=== PATIENT | male | born 1950 | race Caucasian/White ===

== ENCOUNTER 2018-05-04 06:53 | Day surgery (SDC) | payer OTHER, SELFPAY ==
[2018-05-04] VITALS (12 sets, daily range): BP systolic 93–134; BP diastolic 55–85; PULSE 58–68; RESP 12–17; TEMP 36–36.7; O2SAT 94–99; BMI 35.0
--- NOTE | 2018-05-04 | PATH_ITS ---
[facility] Accession Number: [id number] . 01 Material submitted: . PART A: BIOPSY GASTRIC POLYPS PART B: GE JUNCTION BIOPSIES . 02 Diagnosis: A. Gastric Polyps, Biopsies: Fundic gland polyps. No evidence of Helicobacter organisms on H/E stain. Negative for intestinal metaplasia, dysplasia or malignancy. . B. Gastroesophageal Junction, Biopsies: Squamocolumnar junctional mucosa with mild chronic inflammation. Negative for specialized intestinal metaplasia, dysplasia or malignancy. MRV/05/07/2018 . 02 Electronically signed: . Mike Jesus MD, PhD, Pathologist NPI- [id number] . 01 Gross description: . Part A: BIOPSY GASTRIC POLYPS: Received in formalin are multiple fragment(s) of parker, soft tissue measuring 0.8 x 0.3 x 0.2 cm in aggregate submitted entirely in 1 cassette(s) Part B: GE JUNCTION BIOPSIES: Received in formalin are multiple fragment(s) of parker, soft tissue measuring 0.6 x 0.3 x 0.2 cm in aggregate submitted entirely in 1 cassette(s) /CKI /CKI . 02 Pathologist provided ICD-10: K31.7, K21.9 . 02 CPT . 164780, 610169 Performed at: [address] [facility] [address], [place], [place] [id number] MD Navjot White MD Phone: [phone] Performed at: 02 [facility] [address] [place], [place] [id number] MD Rhea Stearns MD Phone: [phone]
[2018-05-04] MEDS: SODIUM CHLORIDE 0.9% 1,000 ML 200 ML IV (07:19)
--- NOTE | 2018-05-04 07:49 | PM.HP.1 ---
History of Present Illness Date Patient Seen: 05/04/18 Time Patient Seen: 07:40 Chief complaint: [id number] EGD/COLONOSCOPY Narrative: The patient is a gentleman with longstanding reflux is been having worsening symptoms at the level of his throat. He has noticed he is getting more of a tickle in cough and is pretty certain it is from a reflux it is worsening. He is due for colonoscopy and is here for both an EGD and colonoscopy. No history of polyps or colon cancer in the family Patient History Medical History Atrial fibrillation (Chronic) Chronic anticoagulation (Chronic) Gout (Chronic) GERD (gastroesophageal reflux disease) (Chronic) Sleep apnea (Chronic) History of atrial fibrillation (Resolved) Surgical History History of tonsillectomy and adenoidectomy (Resolved) Family History Father Hypertension Brain cancer Astrocytoma Social History marital status: household members: spouse occupational status: employed Smoking Status: Never smoker alcohol intake: current substance use type: does not use Family & Social History Social History: household members spouse Tobacco & Substance use: Smoking Status Never smoker alcohol intake current Meds Home Medications Medication Instructions Recorded Confirmed Type metoprolol tartrate 25 mg tablet 25 mg PO BID 01/16/18 05/04/18 History omeprazole 20 mg capsule,delayed 20 mg PO DAILY 01/16/18 05/04/18 History release warfarin 5 mg Q OTHER DAY 05/04/18 05/04/18 History warfarin 7.5 mg Q OTHER DAY 05/04/18 05/04/18 History Allergies Allergy/AdvReac Type Severity Reaction Status Date / Time No Known Drug Allergies Allergy Verified 05/04/18 07:12 Review of Systems Review of Systems No cardiac symptoms breathing issues black or bloody bowel movements seizures blackouts Exam Vital Signs (past 8 hours): - 05/04/18 07:20 Temperature 97.6 F Pulse Rate 68 Respiratory Rate 16 Blood Pressure 134/85 Pulse Oximetry 98 Oxygen Delivery Method Room Air Narrative Exam Narrative: Operative no apparent distress. Eyes nonicteric. Lungs are clear to auscultation without rales or rhonchi. Heart regular rate and rhythm no murmur or gallop appreciated. Abdomen is soft nontender without mass Assessment & Plan Assessment & Plan narrative: Patient with longstanding reflux and due for colonoscopy. I have discussed the procedure and the rationale with the patient including risks of bleeding, perforation which would necessitate a major operation, failure to find remove all lesions and the potential to tattoo. They appeared to understand and wished to proceed.
--- NOTE | 2018-05-04 07:55 | PM.PREOP ---
Pre-operative Note Interval Note History & Physical reviewed/Exam performed by Physician: Yes Changes to H&P: No ASA Class (for procedural sedation): III
[2018-05-04] MEDS: TETRACAINE/BENZOCAINE/BUTAMBEN (CETACAINE) BOTTLE 1 SPRAY TOP (08:02)
[2018-05-04] MEDS: LIDOCAINE 4% SOLN 50 ML 20 ML TOP (08:02)
[2018-05-04] MEDS: fentaNYL 250 MCG/5 ML INJ IV (08:28)
[2018-05-04] MEDS: MIDAZOLAM 5 MG/5 ML VIAL IV (08:28)
--- NOTE | 2018-05-04 09:15 | P.OP.ENDO_ITS ---
Operative Date/Time/Diagnoses Date of procedure: 05/04/18 Time of procedure: 09:06 Pre-op diagnosis: Chronic gastroesophageal reflux disease. Screening for colon cancer. Post-op diagnosis: same (Gastric polyp suggestive of fundic polyps. Left-sided diverticulosis of the colon.) Procedure & Clinicians Study performed: EGD with cold biopsy. Colonoscopy. Same procedure as scheduled: Yes Indications: Chronic reflux. Screening. Surgeon: Sunil Lambert Procedure Notes SCOAP/Timeout: Performed Procedure in detail: The patient had topical anesthetic applied to oropharynx. She was placed in left lateral decubitus position and underwent IV sedation directed by the surgeon consisting of fentanyl and Versed. A bite block was inserted and the scope was advanced through it into the esophagus. The visible portions of the larynx were noted to be normal as were the vocal cords. The esophagus was unremarkable. GE junction was noted at 40 cm from the incisors. There was a sharp demarcation between gastric and esophageal mucosa. None of the typical findings of De Santiago's esophagus were present. The stomach insufflated well. There were no lesions seen in the body, antrum or at the incisura except for some gastric polyps that appeared to be benign gastric fundic polyps. The pyloric channel was patent. The duodenum was unremarkable to the 3rd part. The scope was brought back into the stomach and retroflexed. The proximal stomach was normal except for small hiatal hernia. Biopsies were taken of multiple gastric polyps. The scope was straightened and brought out through the esophagus again. Random biopsies were taken at the GE junction though visibly I did not suspect De Santiago's esophagus. No lesions were seen in the esophagus on withdrawal. The scope was removed and the patient tolerated the procedure well. The patient was placed in the left lateral decubitus position and underwent IV sedation directed by the surgeon consisting of fentanyl and Versed. Digital exam was unremarkable. Of note, due to the location of his prostate and the length of my finger I could only feel the most distal portion of his prostate. I really could not tax compliance manager it size or whether there was a mass. The scope was inserted and advanced through the rectum into the sigmoid, descending, transverse, and ascending colon. I did extensive sigmoid and descending diverticulosis. There was no narrowing however no inflammation. We had to reposition the patient multiple times and apply pressure and assist insert a stiffener in order to reach the cecum. The cecum was reached identified by the ileocecal valve and the appendiceal opening. The scope was gradually brought out. No Polyps were found. The scope ultimately was retroflexed in the rectum. The appearance was normal. The scope was removed and the patient tolerated the procedure well. Prep was very good. Scope withdrawal time: 8.75 min Sedation minutes: 49 Findings: diverticulosis (Left colon) and hiatal hernia (Small) Specimen(s): other (Gastric polyps. Gastroesophageal junction.) Complications: none Recommendations: Colonscopy in 10 years Follow up: as needed Disposition: PACU
== END 2018-05-04 10:24 | disposition home or self-care (01) ==
PROVIDERS: PCP Family Medicine; Visit Provider Specialist
PROC: 0DJ08ZZ Inspection of Upper Intestinal Tract, Via Natural or Artificial Opening Endoscopic (ICD-10-PCS; CPT 43235; principal; 2018-05-04 07:45)
PROC: 0DJD8ZZ Inspection of Lower Intestinal Tract, Via Natural or Artificial Opening Endoscopic (ICD-10-PCS; CPT 45378; 2018-05-04 07:45)
DX: Z12.11 Encounter for screening for malignant neoplasm of colon (principal); K57.30 Diverticulosis of large intestine without perforation or abscess without bleeding; K31.7 Polyp of stomach and duodenum; K21.9 Gastro-esophageal reflux disease without esophagitis; K44.9 Diaphragmatic hernia without obstruction or gangrene; I48.91 Unspecified atrial fibrillation; Z79.01 Long term (current) use of anticoagulants; G47.30 Sleep apnea, unspecified
CPT/HCPCS: 43239; 45378; 99152; 99153; J2250; J3010

== ENCOUNTER → 2018-06-27 15:59 | Outpatient (REF) | payer OTHER, SELFPAY ==
[2018-06-27 16:12] LABS: INR 1.8 (0.9-1.3); Prothrombin Time 21.3 SECONDS (10.1-12.7)
== END ==
LOC: LAB 15:59
PROVIDERS: PCP Family Medicine; Visit Provider Family Medicine
DX: Z79.01 Long term (current) use of anticoagulants (principal)
CPT/HCPCS: 85610

== ENCOUNTER → 2019-02-01 11:24 | Outpatient (ROUT) | payer OTHER, SELFPAY ==
[2019-02-01 11:33] LABS: INR 3.3 (0.9-1.3); Prothrombin Time 39.4 SECONDS (10.1-12.7)
== END ==
PROVIDERS: PCP Family Medicine; Visit Provider Family Medicine
DX: Z79.01 Long term (current) use of anticoagulants (principal)
CPT/HCPCS: 85610

== ENCOUNTER → 2019-02-06 15:39 | Outpatient (ROUT) | payer OTHER, SELFPAY ==
[2019-02-06 15:53] LABS: INR 1.9 (0.9-1.3); Prothrombin Time 22.3 SECONDS (10.1-12.7)
== END ==
PROVIDERS: PCP Family Medicine; Visit Provider Family Medicine
DX: I48.91 Unspecified atrial fibrillation (principal)
CPT/HCPCS: 85610

== ENCOUNTER → 2019-02-11 13:34 | Outpatient (CLI) | payer OTHER, SELFPAY ==
--- NOTE | 2019-02-11 | DI.ECHO.S_ITS ---
[facility] +---------+ : : [address] : : : : [address] : : : : Phone: [phone]+ Echocardiogram Report + + :Name: JORDAN FREEMAN Study Date: 02/11/2019 Height: 74 in : :[facility] Location: [facility] Weight: 275 lb : : Gender: Male BSA: 2.5 m2 : :: 1950 Age: 68 yrs BP: 118/68 mmHg: :Reason For Study: Atrial Fibrillation : :Ordering Physician: Olive : :Shahzad Prado Performed By: Renae Parson : :Referring: OLIVE PRADO : + + Interpretation Summary The patient was in atrial fibrillation with heart rates between 53-73 bpm during the exam. In comparison to previous study atrial fibrillation is new. The left ventricle is normal in size. The ejection fraction is estimated to be 50-55%. Previous LV ejection fraction 55-60%. The right ventricle is grossly normal size. The right ventricular systolic function is normal. No significant valvular pathology seen. Procedure: A two-dimensional transthoracic echocardiogram with color flow and Doppler was performed. The study quality was technically adequate. Comparison is made with the echocardiogram of 01/05/2017. The patient was in atrial fibrillation with heart rates between 53-73 bpm during the exam. Left Ventricle: The left ventricle is normal in size. Left ventricular wall thickness is mildly increased. There is no thrombus. The ejection fraction is estimated to be 50-55%. There are no focal wall motion abnormalities. Diastolic function could not be accurately assessed due to atrial fibrillation. Right Ventricle: The right ventricle is grossly normal size. The right ventricular systolic function is normal. Atria: Both atria are normal in size. Both atria have remained unchanged in size since the prior echo exam. Mitral Valve: The mitral valve is normal in structure and function. There is trace mitral regurgitation. Aortic Valve: The aortic valve is trileaflet. The aortic valve opens well. There is no aortic valve stenosis. No aortic regurgitation is present. Tricuspid Valve: The tricuspid valve is normal in structure and function. There is a trace or physiologic amount of tricuspid regurgitation. Pulmonary artery pressures cannot be estimated because of the lack of a measurable TR jet velocity. Pulmonic Valve: The pulmonic valve is not well seen, but is grossly normal. There is a trace or physiologic amount of pulmonic regurgitation. Great Vessels: The ascending aorta is normal in size. The inferior vena cava was not visualized. Pericardium/ Pleura There is no pericardial effusion. There is an anterior echo-free space consistent with a fat pad. There is no pleural effusion. MMode/2D Measurements & Calculations LVIDd: 5.6 cm LVOT diam: 2.3 cm LVIDs: 3.4 cm asc Aorta Diam: 2.9 cm FS: 40.4 % Ao Arch Diam (Prox Trans): 3.1 cm IVSd: 1.2 cm LVPWd: 1.2 cm LV barraza. diameter/BSA (cm/m^2): 2.3 LV sys. diameter/BSA (cm/m^2): 1.3 LA A2 area: 19.2 cm2 RA long axis: 5.0 cm LA A4 area: 20.3 cm2 RA area: 18.3 cm2 LA length (vol): 5.5 cm RA vol: 57.1 ml LA vol: 60.2 ml RA : 22.9 ml/m2 LA vol index: 24.2 ml/m2 TAPSE: 1.7 cm Doppler Measurements & Calculations Ao V2 max: 106.5 cm/sec LVOT Max Judd: 80.6 cm/sec Ao V2 mean: 72.1 cm/sec LV V1 max P.6 mmHg Ao max P.6 mmHg LV V1 VTI: 14.9 cm Ao mean P.3 mmHg JANUARY(I,D): 3.2 cm2 Ao V2 VTI: 20.0 cm JANUARY(V,D): 3.3 cm2 sev ratio: 0.75 JANUARY indexed to BSA (cm^2/m^2): 1.3 SV(LVOT): 64.0 ml Reading Physician:08:53 AM
== END ==
PROVIDERS: PCP Family Medicine; Visit Provider Internal Medicine Cardiovascular Disease
DX: I48.19 Other persistent atrial fibrillation (principal)
CPT/HCPCS: 93306

== ENCOUNTER → 2019-02-21 08:23 | Outpatient (CLI) | payer OTHER, SELFPAY ==
--- NOTE | 2019-02-21 | DI.NM.S_ITS ---
PROCEDURE: NM DOMINIC PERF SPECT REST & STR Rest and exercise myocardial perfusion SPECT with gated imaging and ejection fraction RADIOPHARMACEUTICAL: 26.3 mCi Tc-99m sestamibi IV at rest and 25.4 mCi Tc-99m sestamibi IV at peak exercise. A two day-protocol was performed. INDICATIONS: Other persistent atrial fibrillation TECHNIQUE: Radiopharmaceutical was injected at peak stress test, and also at rest. SPECT images were obtained. SPECT myocardial perfusion images were displayed in short axis, horizontal long axis, and vertical long axis views. Gated images were reviewed using zweitgeist software. COMPARISON: None. CARDIAC STRESS: A standard Ezequiel treadmill exercise tolerance test was performed by the patient under the supervision of an attending staff. The patient exercised for 6 minutes and 3 seconds; functional aerobic impairment (LINDA) is +20%. Hemodynamic data: There is normal blood pressure and heart rate response to exercise stress. Patient achieved 129% of maximum predicted heart rate at peak exercise. Symptoms: Patient denied chest pain during exercise. EKG: Atrial fibrillation with ventricular rate in the high 90s-100s range at rest. No diagnostic EKG changes of ischemia with exercise; rare ventricular ectopy. FINDINGS: Raw data: There is good myocardial labeling by radiotracer. No significant motion artifacts. Left ventricle function: Gated images demonstrate normal left ventricle wall thickening. No segmental wall motion abnormality. No transient ischemic dilation; TID is 0.77 (normal less than 1.3). The left ventricle resting end-diastolic volume is 131 mL. Left ventricle stress ejection fraction is 56%; normal values are above 45%. Myocardial perfusion: There is normal distribution of activity in the left and right ventricular myocardium. No fixed or reversible perfusion defects. IMPRESSION: Low risk, normal treadmill nuclear stress test available for comparison. 1) No perfusion evidence of ischemia or infarction. 2) Normal left ventricular size, wall motion, and systolic function (EF post stress 56%). 3) No ECG evidence of ischemia. 4) No angina during the study. 5) Mildly reduced exercise tolerance (7.0 METs, LINDA +20%). Target heart rate achieved. Appropriate BP response to exercise. 6) Atrial fibrillation with ventricular rate in the high 90s-100s range at rest. Consider further optimization of rate control. 7) No prior nuclear stress test available for comparison. Dictated by: Loan Razo MD on 02/22/2019 at 16:41 Approved by: Loan Razo MD on 02/22/2019 at 16:44
== END ==
PROVIDERS: PCP Family Medicine; Visit Provider Internal Medicine Cardiovascular Disease
DX: I48.19 Other persistent atrial fibrillation (principal)
CPT/HCPCS: 78452; 93016; 93017; 93018; A9502

== ENCOUNTER → 2019-03-06 13:11 | Outpatient (ROUT) | payer OTHER, SELFPAY ==
[2019-03-06 13:23] LABS: INR 2.6 (0.9-1.3); Prothrombin Time 30.4 SECONDS (10.1-12.7)
== END ==
PROVIDERS: PCP Family Medicine; Visit Provider Family Medicine
DX: Z79.01 Long term (current) use of anticoagulants (principal)
CPT/HCPCS: 85610

== ENCOUNTER → 2019-03-28 13:39 | Outpatient (ROUT) | payer OTHER, SELFPAY ==
[2019-03-28 13:47] LABS: INR 2.1 (0.9-1.3); Prothrombin Time 24.8 SECONDS (10.1-12.7)
== END ==
PROVIDERS: PCP Family Medicine; Visit Provider Family Medicine
DX: Z79.01 Long term (current) use of anticoagulants (principal)
CPT/HCPCS: 85610

== ENCOUNTER → 2019-05-08 12:59 | Outpatient (ROUT) | payer OTHER, SELFPAY ==
[2019-05-08 13:20] LABS: INR 2.7 (0.9-1.3); Prothrombin Time 31.3 SECONDS (10.1-12.7)
== END ==
PROVIDERS: PCP Family Medicine; Visit Provider Family Medicine
DX: Z79.01 Long term (current) use of anticoagulants (principal)
CPT/HCPCS: 85610

== ENCOUNTER → 2019-07-05 09:49 | Outpatient (ROUT) | payer OTHER, SELFPAY ==
[2019-07-05 10:01] LABS: INR 1.8 (0.9-1.3); Prothrombin Time 20.8 SECONDS (10.1-12.7)
== END ==
PROVIDERS: PCP Family Medicine; Visit Provider Family Medicine
DX: Z79.01 Long term (current) use of anticoagulants (principal)
CPT/HCPCS: 85610

== ENCOUNTER → 2019-10-09 10:23 | Outpatient (ROUT) | payer OTHER, SELFPAY ==
[2019-10-09 10:31] LABS: INR 1.4 (0.9-1.3); Prothrombin Time 16.5 SECONDS (10.1-12.7)
== END ==
PROVIDERS: PCP Family Medicine; Visit Provider Family Medicine
DX: Z79.01 Long term (current) use of anticoagulants (principal)
CPT/HCPCS: 85610

== ENCOUNTER → 2020-01-14 10:42 | Outpatient (ROUT) | payer MEDICARE, SELFPAY ==
[2020-01-14 11:06] LABS: INR 2.3 (0.9-1.3); Prothrombin Time 26.2 SECONDS (10.1-12.7)
== END ==
PROVIDERS: PCP Family Medicine; Visit Provider Family Medicine
DX: I48.91 Unspecified atrial fibrillation (principal)
CPT/HCPCS: 85610

== ENCOUNTER → 2020-02-12 12:07 | Outpatient (ROUT) | payer MEDICARE, SELFPAY ==
[2020-02-12 12:19] LABS: INR 2.1 (0.9-1.3); Prothrombin Time 24.4 SECONDS (10.1-12.7)
== END ==
PROVIDERS: PCP Family Medicine; Visit Provider Family Medicine
DX: Z79.01 Long term (current) use of anticoagulants (principal)
CPT/HCPCS: 85610

== ENCOUNTER → 2020-04-01 12:29 | Outpatient (ROUT) | payer MEDICARE, SELFPAY ==
[2020-04-01 12:41] LABS: Prothrombin Time 33.8 SECONDS (10.1-12.7)
== END ==
PROVIDERS: PCP Family Medicine; Visit Provider Family Medicine
DX: I48.91 Unspecified atrial fibrillation (principal)
CPT/HCPCS: 85610

== ENCOUNTER → 2020-04-09 12:24 | Outpatient (ROUT) | payer MEDICARE, SELFPAY ==
[2020-04-09 12:41] LABS: INR 2.7 (0.9-1.3); Prothrombin Time 30.7 SECONDS (10.1-12.7)
== END ==
PROVIDERS: PCP Family Medicine; Visit Provider Family Medicine
DX: Z79.01 Long term (current) use of anticoagulants (principal)
CPT/HCPCS: 85610

== ENCOUNTER → 2020-05-14 14:51 | Outpatient (ROUT) | payer MEDICARE, OTHER, SELFPAY ==
[2020-05-14 15:33] LABS: Prothrombin Time 22.6 SECONDS (10.1-12.7)
== END ==
PROVIDERS: PCP Family Medicine; Visit Provider Family Medicine
DX: Z79.01 Long term (current) use of anticoagulants (principal)
CPT/HCPCS: 85610

== ENCOUNTER → 2020-10-22 09:21 | Outpatient (CLI) | payer MEDICARE, OTHER, SELFPAY ==
--- NOTE | 2020-10-22 | DI.RAD.S_ITS ---
PROCEDURE: FL UPPER GI W AIR INDICATIONS: Gastro-esophageal reflux disease without esophagit COMPARISON: None. FINDINGS: KUB: Preprocedural core finisher film demonstrates a normal bowel gas pattern. No suspicious abdominal calcifications. Visualized solid organ contours appear normal. Bony structures appear unremarkable. Esophagus: Esophageal mucosa is normal on air-contrast views. On single-contrast views, there is decreased esophageal peristalsis. No strictures, extrinsic mass effects, or diverticula. Spontaneous severe gastroesophageal reflux to level of the thoracic inlet. Stomach: The stomach is normally distensible, with normal rugal fold thickness. There is a trace hiatal hernia. No mucosal masses or ulcers. Pylorus and duodenal bulb appear normal in morphology. Duodenal folds are normal in thickness as well. IMPRESSION: Severe gastroesophageal reflux. Esophageal dysmotility Trace hiatal hernia Dictated by: William Morales M.D. on 10/22/2020 at 16:49 Approved by: William Morales M.D. on 10/22/2020 at 16:51
== END ==
PROVIDERS: PCP Family Medicine; Referring Provider Family Medicine; Visit Provider Family Medicine
DX: K21.9 Gastro-esophageal reflux disease without esophagitis (principal); K22.4 Dyskinesia of esophagus
CPT/HCPCS: 74246

== ENCOUNTER → 2020-11-03 10:34 | Outpatient (CLI) | payer MEDICARE, OTHER, SELFPAY ==
--- NOTE | 2020-11-03 | DI.CT.S_ITS ---
PROCEDURE: CT ABDOMEN PELVIS W CON INDICATIONS: Unspecified abdominal pain TECHNIQUE: After the administration of oral and intravenous contrast, axial sections were acquired from the lung bases to the pubic symphysis. Coronal and sagittal reformats were performed. For radiation dose reduction, the following was used: automated exposure control, adjustment of mA and/or kV according to patient size. COMPARISON:None. FINDINGS: ABDOMEN: Lung bases: Normal. Heart: Borderline enlarged. No pericardial effusion. Liver: Mild hepatic steatosis. Subcentimeter hepatic foci are statistically cysts or hemangiomas, although technically too small to characterize accurately and therefore nonspecific. Gallbladder: Partially decompressed otherwise unremarkable. Bile ducts: Normal. Pancreas: Normal. Spleen: Normal. Adrenals: Normal. Kidneys and Ureters: No hydronephrosis. Left parapelvic cysts. Stomach and duodenum: Normal. Bowel: Numerous scattered colonic diverticula. No definite acute diverticulitis identified. Appendix is not clearly identified however no suspicious pericecal inflammatory changes are seen. Other: No free fluid or air. Abdominal nodes: Normal. Aorta and IVC: Normal in size. Ventral wall: Fat containing 3 cm periumbilical hernia. PELVIS: Bladder: Normal. Inguinal region: No hernia. Pelvic nodes: Normal. Bones: Diffuse spondylosis and facet arthropathy. No compression fracture. Multilevel degenerative endplate sclerosis and spurring. Diffuse facet arthropathy. IMPRESSION: Overall, no acute abnormality. Appendix is not clearly identified however no suspicious pericecal inflammatory changes are seen. Fat containing 3 cm periumbilical hernia. Incidental colonic diverticulosis. Additional chronic and incidental findings as above. Dictated by: William Morales M.D. on 11/03/2020 at 16:07 Approved by: William Morales M.D. on 11/03/2020 at 16:11
== END ==
PROVIDERS: PCP Family Medicine; Referring Provider Family Medicine; Visit Provider Family Medicine
DX: R10.9 Unspecified abdominal pain (principal); K42.9 Umbilical hernia without obstruction or gangrene; K57.90 Diverticulosis of intestine, part unspecified, without perforation or abscess without bleeding
CPT/HCPCS: 74177

== ENCOUNTER → 2021-02-01 08:48 | Outpatient (CLI) | payer MEDICARE, OTHER, SELFPAY ==
[2021-02-01 12:12] LABS: COVID19 -Nasal RAPID Negative (Negative)
== END ==
PROVIDERS: PCP Family Medicine; Visit Provider Nurse Practitioner Family
DX: Z20.822 Contact with and (suspected) exposure to COVID-19 (principal)
CPT/HCPCS: 87635; C9803

== ENCOUNTER 2021-02-03 07:46 | Day surgery (SDC) | payer MEDICARE, OTHER, SELFPAY ==
[2021-02-03] VITALS (7 sets, daily range): BP systolic 99–136; BP diastolic 59–82; PULSE 61–72; RESP 12–18; TEMP 36.1–36.6; O2SAT 94–99; BMI 30.9
--- NOTE | 2021-02-03 | PATH_ITS ---
[facility] Accession Number: [id number] . 01 Material submitted: . PART A: duodenum - DUODENAL PART B: gastrointestinal site - GASTRIC . 02 Diagnosis: A. Duodenal: Small bowel mucosa with no diagnostic abnormality. Negative for active inflammation, dysplasia, and malignancy. . B. Gastric: Portions of gastric body type and antral mucosa with mild chronic active gastritis. Negative for Helicobacter organisms by immunohistochemistry. Negative for intestinal metaplasia. Negative for dysplasia or malignancy. [facility] 02/08/2021 1651 Local . 02 Electronically signed: . Madelyn Wilson MD, Pathologist NPI- [id number] . 01 Gross description: . Part A: DUODENAL: Received in formalin are 2 fragment(s) of parker, soft tissue measuring 0.3 x 0.3 x 0.2 cm to 0.3 x 0.2 x 0.2 cm submitted entirely in 1 cassette(s) Part B: GASTRIC: Received in formalin are 2 fragment(s) of parker, soft tissue measuring 0.3 x 0.2 x 0.2 cm to 0.2 x 0.2 x 0.2 cm submitted entirely in 1 cassette(s) /QBJ 02/04/2021 0850 Local . 02 Microscopic: . B. An immunohistochemical stain was performed to evaluate for Helicobacter organisms and is negative. The control stain showed appropriate reactivity. . * This test was developed and its performance characteristics determined by [employer]. It has not been cleared or approved by the U.S. Food and Drug Administration. The FDA has determined that such clearance or approval is not necessary. This test is used for clinical purposes. It should not be regarded as investigational or for research. . 02 Pathologist provided ICD-10: K29.70 . 02 CPT . 977255, 593745, J60836 Performed at: 01 [facility] [address] [place] [address], [place], [place] [id number] MD Navjot White MD Phone: [phone] Performed at: 02 [facility] [place] [address] [place], [place] [id number] MD Rhea Stearns MD Phone: [phone]
--- NOTE | 2021-02-03 08:35 | PM.HP.1 ---
History of Present Illness History of Present Illness Date Patient Seen: 02/03/21 Chief complaint: SDC Narrative: GE reflux and abdominal discomfort. Rule out esophagitis rule out peptic ulcer disease Patient History Medical History Atrial fibrillation Chronic anticoagulation GERD (gastroesophageal reflux disease) Gout History of atrial fibrillation Sleep apnea Surgical History History of tonsillectomy and adenoidectomy Family & Social History Family History Father Hypertension Brain cancer Astrocytoma Social History: household members spouse Tobacco & Substance use: Smoking Status Never smoker alcohol intake current alcohol intake frequency a few times a month Substance Use Type does not use Meds Home Medications and Allergies Home Medications Medication Instructions Recorded Confirmed Type omeprazole 20 mg capsule,delayed 20 mg PO DAILY 01/16/18 02/03/21 History release Oral Appliance #1 ea 04/29/19 02/02/21 Rx Flecainide 75 mg PO BID 02/02/21 02/03/21 History bupropion HCl 75 mg tablet 75 mg PO DAILY 02/02/21 02/03/21 History eliquis 5 mg PO BID 02/02/21 02/03/21 History zolpidem 10 mg tablet 10 mg PO BEDTIME 02/02/21 02/03/21 History famotidine 40 mg tablet 40 mg PO BEDTIME 02/03/21 02/03/21 History metoprolol succinate 25 mg 12.5 mg PO DAILY 02/03/21 02/03/21 History tablet,extended release 24 hr tamsulosin 0.4 mg capsule 0.4 mg PO DAILY 02/03/21 02/03/21 History Allergies Allergy/AdvReac Type Severity Reaction Status Date / Time No Known Drug Allergies Allergy Verified 02/03/21 08:13 Exam Narrative Exam Narrative: Oropharynx free of lesions Chest clear to auscultation percussion Cardiac exam reveals no S3 or murmur Assessment & Plan Assessment & Plan narrative: History of GE reflux improved on increased dose of medications. Also with significant bloating and upper abdominal discomfort rule out peptic disease rule out celiac. Off Eliquis for almost 48 hours. Risks benefits alternatives have been explained. Further recommendations will follow the results of the study. Time Spent With Patient Critical Care time: I spent a total of [] minutes of critical care time on this patient's care today; this time is exclusive of procedural time.
--- NOTE | 2021-02-03 08:37 | PM.OP.EGD ---
Operative Date/Time/Diagnoses Date of procedure: 02/03/21 Pre-op diagnosis: See indication and findings Procedure & Clinicians Study performed: EGD Indications: GE reflux and abdominal discomfort incompletely treated with medications Surgeon: Roslyn Baptiste Procedure Notes Procedure in detail: After informed consent was obtained the patient was placed in left lateral decubitus position. The video upper scope was placed into the oropharynx and with the patient's help swelled into the esophagus. The esophagus stomach and duodenum were carefully examined. On withdrawal, retroflexed view of the GE junction was performed. The scope was removed. The patient tolerated procedure well. Blood loss none Complications none Sedation mac Findings 1. Normal esophagus with scattered glycogenic acanthoses but completely normal squamocolumnar junction. Lower esophageal sphincter was fairly wide open. Squamocolumnar junction was located at 38 cm. 2. Streaky, patchy pre-pyloric gastric erythema. Biopsies taken to rule out Helicobacter 3. Normal duodenal bulb and sweep biopsies taken to rule out celiac Will be in touch with biopsy results. He should continue his diet for the time being and remain on omeprazole b.i.d. with Pepcid q.h.s..
[2021-02-03] MEDS: SODIUM CHLORIDE 0.9% 1,000 ML 84 ML IV (08:41)
== END 2021-02-03 10:10 | disposition home or self-care (01) ==
LOC: ENDO 07:47
PROVIDERS: PCP Family Medicine; Referring Provider Internal Medicine Gastroenterology; Visit Provider Internal Medicine Gastroenterology
PROC: 0DJ08ZZ Inspection of Upper Intestinal Tract, Via Natural or Artificial Opening Endoscopic (ICD-10-PCS; CPT 43235; principal; 2021-02-03 09:00)
DX: K29.50 Unspecified chronic gastritis without bleeding (principal); K21.9 Gastro-esophageal reflux disease without esophagitis; I48.91 Unspecified atrial fibrillation; Z79.01 Long term (current) use of anticoagulants; G47.33 Obstructive sleep apnea (adult) (pediatric)
CPT/HCPCS: 43239; J2704

== ENCOUNTER → 2021-05-25 12:59 | Outpatient (CLI) | payer MEDICARE, OTHER, SELFPAY ==
--- NOTE | 2021-05-25 | DI.CT.S_ITS ---
PROCEDURE: CT KIDNEY URETER BLADDER (KUB) INDICATIONS: Poor urinary stream TECHNIQUE: Axial sections were acquired from the lung bases to the pubic symphysis. Coronal and sagittal reformats were performed. For radiation dose reduction, the following was used: automated exposure control, adjustment of mA and/or kV according to patient size. COMPARISON: None. FINDINGS: Image quality: Excellent. Lung bases: Unremarkable. Heart: No significant findings. URINARY: Right Kidney: No stones or hydronephrosis. Right Ureter: No hydroureter. Left Kidney: No stones or hydronephrosis. Multiple left peripelvic cysts. Left Ureter: No hydroureter. Bladder: Normal wall thickness. No stones. ABDOMEN: Liver: Unremarkable. Gallbladder: Unremarkable. Biliary ducts: Unremarkable. Pancreas: Unremarkable. Spleen: Unremarkable. Adrenal Glands: Unremarkable. Stomach and Bowel: Stomach, small bowel loops, and colon are unremarkable. There is diverticulosis without evidence of diverticulitis. Peritoneum: No abnormal intraperitoneal fluid. No free air. Ventral Wall: Fat containing paraumbilical hernia. Abdominal Nodes: No enlarged retroperitoneal or mesenteric lymph nodes. Vessels: Aorta and inferior vena cava are normal in size. PELVIS: Pelvic Organs: There is a lipoma in the right anterior thigh, otherwise unremarkable pelvis. Pelvic Nodes: Unremarkable. Miscellaneous: No inguinal hernias are seen. Bones: Unremarkable. IMPRESSION: 1. No nephroureterolithiasis. 2. No hydronephrosis. 3. Diverticulosis without evidence of diverticulitis. Dictated by: Daniel Cope M.D. on 05/25/2021 at 17:04 Approved by: Daniel Cope M.D. on 05/25/2021 at 17:10
== END ==
PROVIDERS: PCP Family Medicine; Referring Provider Urology; Visit Provider Urology
DX: R39.12 Poor urinary stream (principal); R39.89 Other symptoms and signs involving the genitourinary system; K57.90 Diverticulosis of intestine, part unspecified, without perforation or abscess without bleeding; K42.9 Umbilical hernia without obstruction or gangrene
CPT/HCPCS: 74176

== ENCOUNTER → 2022-12-14 16:56 | Outpatient (CLI) | payer MEDICARE, OTHER, SELFPAY ==
--- NOTE | 2022-12-14 | DI.MRI.S_ITS ---
PROCEDURE: MR KNEE RT WO CON INDICATIONS: chronic pain of rt knee TECHNIQUE: Noncontrast sagittal PD fast spin echo and T2 fast spin echo with fat saturation, sagittal 3-D FLASH with fat saturation; coronal T1 spin echo and PD fast spin echo with fat saturation, and axial PD fast spin echo with fat saturation through the knee. COMPARISON: None. FINDINGS: Image quality: Excellent. Menisci: Peripheral displacement of medial meniscus bowing medial collateral ligament is seen. No evidence of focal meniscal tear. The meniscal root ligaments appear intact. Cruciate ligaments: The anterior and posterior cruciate ligaments appear intact. Medial structures: The medial collateral ligament appears thickened. The posterior oblique ligament, semimembranosus tendon insertions, oblique popliteal ligament, and meniscocapsular junction appear intact. Visualized portions of the pes anserinus tendons appear normal. No abnormal bursal fluid. Lateral structures: The lateral collateral ligament, long and short heads of the biceps femoris tendon appear intact. The popliteus tendon appears normal; the popliteofibular ligament appears intact. Iliotibial band appears normal. Anterior structures: Distal quadriceps tendinosis at its superior patellar insertion is seen. Proximal patellar tendinosis at its inferior patellar insertion is also noted. Patellar alignment is normal. No femoral trochlear dysplasia or ventral trochlear prominence. No edema in the infrapatellar fat pad. 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 No fracture or dislocation. Joint space: There is moderate knee joint fluid. There is a small 1.5 x 1.2 x 1.6 cm Garcia's cyst. Normal appearing synovial plicae are incidentally noted. IMPRESSION: 1. Moderate tricompartmental osteoarthritis and chondromalacia. No fracture or dislocation. Moderate joint effusion, no loose bodies. Tiny Garcia's cyst. 2. Degenerative changes in posterior horn of medial meniscus. No MR evidence of focal meniscal tear. 3. The cruciate ligaments are intact. 4. Low-grade MCL sprain. 5. Distal quadriceps tendinosis and proximal patellar tendinosis. Dictated by: Timothy Khan M.D. on 12/15/2022 at 12:20 Approved by: Timothy Khan M.D. on 12/15/2022 at 12:26
== END ==
PROVIDERS: PCP Family Medicine; Referring Provider Family Medicine; Visit Provider Family Medicine
DX: M25.561 Pain in right knee (principal); G89.29 Other chronic pain; M17.11 Unilateral primary osteoarthritis, right knee; M94.261 Chondromalacia, right knee; M25.461 Effusion, right knee; M71.21 Synovial cyst of popliteal space [Baker], right knee; S83.411A Sprain of medial collateral ligament of right knee, initial encounter
CPT/HCPCS: 73721

== ENCOUNTER → 2023-04-27 09:50 | Outpatient (CLI) | payer MEDICARE, OTHER, SELFPAY ==
[2023-04-27 10:40] LABS: Estimated Glomerular Filt Rate > 60 mL/min (>60)
== END ==
LOC: LAB 09:52
PROVIDERS: PCP Family Medicine; Referring Provider Radiology Diagnostic Radiology; Visit Provider Radiology Diagnostic Radiology
DX: I48.91 Unspecified atrial fibrillation (principal)
CPT/HCPCS: 36415; 82565

== ENCOUNTER → 2023-04-28 09:20 | Outpatient (CLI) | payer MEDICARE, OTHER, SELFPAY ==
--- NOTE | 2023-04-28 09:24 | DI.CT.S_ITS ---
PROCEDURE: CT ABDOMEN PELVIS W CON INDICATIONS: lower abdominal pain TECHNIQUE: After the administration of intravenous contrast, axial sections acquired from the lung bases to the pubic symphysis. Coronal and sagittal reformats were performed. For radiation dose reduction, the following was used: automated exposure control, adjustment of mA and/or kV according to patient size. COMPARISON: [facility], CT, CT ABDOMEN PELVIS W CON, 11/03/2020, 11:25. FINDINGS: Image quality: Diagnostic. Lower Chest: Mild bibasilar dependent atelectasis is seen. Heart size is normal, no pericardial effusion. ABDOMEN: Liver: No solid mass. Moderate hepatic steatosis is seen. Gallbladder: No calcified gallstones or gallbladder wall thickening. Biliary ducts: No biliary dilation. Pancreas: No ductal dilation. Spleen: Size is within normal limits. Adrenal Glands: No adrenal nodules. Kidneys and Ureters: No hydronephrosis. No solid mass. Simple appearing left peripelvic renal cysts are seen. No complex renal cystic lesion which requires follow up. Stomach and Bowel: There is no bowel obstruction. No gastric or small bowel wall thickening. Moderate sigmoid diverticulosis is seen without colonic wall thickening or mesenteric fat stranding. No abscess collection. Peritoneum: No abnormal intraperitoneal fluid. No free air. Ventral Wall: No significant ventral hernia. Abdominal Nodes: No retroperitoneal or mesenteric adenopathy by size criteria. Vessels: Aorta and inferior vena cava are normal in size. PELVIS: Pelvic Organs: Unremarkable. Bladder: Mildly enlarged prostate gland with mild mass effect on floor of urinary bladder is seen. No bladder wall thickening or discrete bladder wall mass. No calcified bladder stones. Pelvic Nodes: No enlarged lymph nodes. Miscellaneous: No inguinal hernias are seen. Bones: No aggressive osseous abnormality. No acute vertebral body compression fracture. Degenerative disc disease throughout lower thoracic and lumbar spine is seen. IMPRESSION: 1. Sigmoid diverticulosis without CT evidence of acute diverticulitis. No bowel obstruction or abnormal bowel wall thickening. No abscess collection. No free fluid or free air. 2. Left-sided peripelvic renal cysts. No solid appearing renal lesion. No renal stones or hydronephrosis. Mildly enlarged prostate gland with mild mass effect on floor of urinary bladder. 3. Moderate hepatic steatosis, no discrete hepatic lesion. Dictated by: Timothy Khan M.D. on 04/28/2023 at 12:49 Approved by: Timothy Khan M.D. on 04/28/2023 at 13:11
== END ==
LOC: CT 09:23
PROVIDERS: PCP Family Medicine; Referring Provider Family Medicine; Visit Provider Family Medicine
DX: K57.30 Diverticulosis of large intestine without perforation or abscess without bleeding (principal); R10.30 Lower abdominal pain, unspecified; N28.1 Cyst of kidney, acquired; N40.0 Benign prostatic hyperplasia without lower urinary tract symptoms; K76.0 Fatty (change of) liver, not elsewhere classified
CPT/HCPCS: 74177; Q9967

== ENCOUNTER → 2023-08-14 14:26 | Outpatient (CLI) | payer MEDICARE, OTHER, SELFPAY ==
--- NOTE | 2023-08-14 14:30 | DI.RAD.S_ITS ---
PROCEDURE: XR HIP W PEL IF DONE RT 2V INDICATIONS: HIP PAIN TECHNIQUE: AP pelvis with lateral view(s) of the right hip(s). COMPARISON: None. FINDINGS: Bones: No fractures or dislocations. Severe right and [id number] left hip joint degeneration with joint space narrowing, subchondral sclerosis and marginal spurring. Pelvic ring appears intact. No suspicious bony lesions. Soft tissues: The visualized bowel gas pattern is normal. No suspicious soft tissue calcifications. IMPRESSION: No acute osseous abnormalities. Severe degenerative changes of the right hip and [id number] degenerative changes of the left hip. Dictated by: Mariano Cerna M.D. on 08/14/2023 at 16:22 Approved by: Mariano Cerna M.D. on 08/14/2023 at 16:23
== END ==
PROVIDERS: PCP Family Medicine; Referring Provider Family Medicine; Visit Provider Family Medicine
DX: M25.551 Pain in right hip (principal)
CPT/HCPCS: 73502

== ENCOUNTER → 2024-05-20 09:08 | Outpatient (CLI) | payer MEDICARE, OTHER, SELFPAY ==
--- NOTE | 2024-05-20 09:10 | DI.MRI.S_ITS ---
PROCEDURE: MR KNEE LT WO CON INDICATIONS: L KNEE SWELLING/PAIN/CREPITUS TECHNIQUE: Noncontrast sagittal PD fast spin echo and T2 fast spin echo with fat saturation, sagittal 3-D FLASH with fat saturation; coronal T1 spin echo and PD fast spin echo with fat saturation, and axial PD fast spin echo with fat saturation through the knee. COMPARISON: [facility], CR, XR KNEE ARTHRITIC SERIES RT, 12/20/2022, 12:33. FINDINGS: Image quality: Excellent. Menisci: Detachment of the free edge of the posterior horn medial meniscus. There is linear horizontal and amorphous high signal intensity within the inner, middle, and peripheral thirds of the medial meniscal body and posterior horn, demonstrating inferior articular surface extension, indicating complex tearing. There is truncation of the free edge of the lateral meniscal body, indicating radial tearing. Cruciate ligaments: The anterior and posterior cruciate ligaments appear intact. Medial structures: Moderate grade partial thickness tearing of the medial collateral ligament.. Visualized portions of the pes anserinus tendons appear normal. No abnormal bursal fluid. Lateral structures: The lateral collateral ligament, long and short heads of the biceps femoris tendon appear intact. The popliteus tendon appears normal. Iliotibial band appears normal. Anterior structures: The quadriceps and patellar tendons appear intact. Mild T2 signal elevation within the quadriceps tendon at the patellar insertion site. Patellar alignment is normal. No femoral trochlear dysplasia or ventral trochlear prominence. No edema in the infrapatellar fat pad. Bones and cartilage: No bone marrow contusions or fractures. Mild tricompartmental periarticular osteophyte formation. Moderate articular cartilage loss diffusely overlies the weight-bearing aspects of the medial femoral condyle and medial tibial plateau. Severe articular cartilage loss overlies the medial patellar facet inferiorly. Joint space: Moderate knee joint effusion. Small Garcia's cyst. Normal appearing synovial plicae are incidentally noted. IMPRESSION: 1. Medial and lateral meniscal tearing. 2. Partial-thickness medial collateral ligament tear. 3. Tricompartmental osteoarthritis with associated articular cartilage loss. 4. Quadriceps tendinopathy. 5. Knee joint effusion and Garcia's cyst. Dictated by: Ray Friedman M.D. on 05/20/2024 at 12:10 Approved by: Ray Friedman M.D. on 05/20/2024 at 12:14
== END ==
PROVIDERS: PCP Family Medicine; Referring Provider Family Medicine; Visit Provider Family Medicine
DX: S83.242A Other tear of medial meniscus, current injury, left knee, initial encounter (principal); S83.282A Other tear of lateral meniscus, current injury, left knee, initial encounter; S83.412A Sprain of medial collateral ligament of left knee, initial encounter; M23.52 Chronic instability of knee, left knee; M17.12 Unilateral primary osteoarthritis, left knee; M71.22 Synovial cyst of popliteal space [Baker], left knee; M25.462 Effusion, left knee; M25.562 Pain in left knee; R29.898 Other symptoms and signs involving the musculoskeletal system
CPT/HCPCS: 73721

== ENCOUNTER → 2024-08-16 16:00 | Outpatient (CLI) | payer MEDICARE, OTHER, SELFPAY ==
[2024-08-16 17:48] LABS: Ferritin 93 ng/mL (18-464)
[2024-08-27 10:40] LABS: Percent Free Testosterone 3.68 % (1.50-4.20); Testosterone Free 8.45 ng/dL (5.00-21.00); Testosterone Total 229.5 ng/dL (264.0-916.0)
== END ==
PROVIDERS: PCP Family Medicine; Referring Provider Physician Assistant; Visit Provider Physician Assistant
DX: E61.1 Iron deficiency (principal); R79.89 Other specified abnormal findings of blood chemistry
CPT/HCPCS: 36415; 82728; 84402; 84403

== ENCOUNTER → 2024-11-27 13:59 | Outpatient (CLI) | payer MEDICARE, OTHER, SELFPAY ==
--- NOTE | 2024-11-27 14:01 | DI.CT.S_ITS ---
PROCEDURE: CT ABDOMEN PELVIS W CON INDICATIONS: Generalized abd pain TECHNIQUE: After the administration of intravenous contrast, axial sections acquired from the lung bases to the pubic symphysis. Coronal and sagittal reformats were performed. For radiation dose reduction, the following was used: automated exposure control, adjustment of mA and/or kV according to patient size. COMPARISON: [facility], CT, CT ABDOMEN PELVIS W CON, 04/28/2023, 10:42. FINDINGS: Image quality: Diagnostic. Lower Chest: No significant findings. ABDOMEN: Liver: Focal hyperintense liver lesion in the dome of the liver, possibly a flash filling hemangioma, unchanged. Gallbladder: No radiopaque gallstones or wall thickening. Biliary ducts: No biliary dilation. Pancreas: No ductal dilation. Spleen: Size is within normal limits. Adrenal Glands: No adrenal nodules. Kidneys and Ureters: No hydronephrosis. No solid mass. No complex renal cystic lesion which requires follow up. Peripelvic cysts, unchanged. Stomach and Bowel: Normal colonic caliber, without significant wall thickening. Oral contrast to the level of the ileum. Normal appendix. Diverticulosis without inflammation. Multiple duodenal diverticuli at the horizontal portion. Peritoneum: No abnormal intraperitoneal fluid. No free air. Ventral Wall: No significant ventral hernia. Abdominal Nodes: No retroperitoneal or mesenteric adenopathy by size criteria. Vessels: Aorta and inferior vena cava are normal in size. PELVIS: Pelvic Organs: Enlarged heterogenous prostate Bladder: No bladder wall thickening, accounting for underdistention. Pelvic Nodes: No enlarged lymph nodes. Miscellaneous: No inguinal hernias are seen. 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 Bones: No aggressive osseous abnormality. Right total hip arthroplasty IMPRESSION: No acute abnormality. Diverticulosis. Large duodenal diverticuli. Prostatomegaly. Dictated by: Reilly Copeland M.D. on 11/28/2024 at 14:26 Approved by: Reilly Copeland M.D. on 11/28/2024 at 14:35
== END ==
LOC: CT 14:00
PROVIDERS: PCP Family Medicine; Referring Provider Family Medicine; Visit Provider Family Medicine
DX: R10.84 Generalized abdominal pain (principal); K76.9 Liver disease, unspecified; N28.1 Cyst of kidney, acquired; K57.90 Diverticulosis of intestine, part unspecified, without perforation or abscess without bleeding; K57.10 Diverticulosis of small intestine without perforation or abscess without bleeding; N40.0 Benign prostatic hyperplasia without lower urinary tract symptoms; D17.9 Benign lipomatous neoplasm, unspecified; Z96.641 Presence of right artificial hip joint
CPT/HCPCS: 74177; Q9967